=== PATIENT | female | born 1985 | race Caucasian/White ===

== ENCOUNTER 2023-03-22 23:53 | Emergency (ER) | payer OTHER, MEDICAID, SELFPAY ==
--- NOTE | 2023-03-22 23:57 | ED_ITS ---
HPI - General Adult General Chief complaint: Recheck/Abnormal Lab/Rx Stated complaint: high blood pressure Time Seen by Provider: 03/22/23 23:57 History of Present Illness HPI narrative: 37-year-old female nonsmoker without chronic medical history presents with her significant other and a chief complaint of what she describes as emotional lability and associated spikes in blood pressure that have been going on for some time. She states that she seems to get upset at the drop of a hat for certain things and can be fine 1 moment in it ramped up quite quickly the next. She states that she notes that she seems to have spikes in her blood pressure sometimes as high as the 160s when this happens. She can generally tell her blood pressure is up because she gets a bit of a headache and her skin feels flushed. She denies any current headache or blurred vision. She denies chest p ain or shortness of breath and has no abdominal pain. She was seen and evaluated at an outside emergency department a few days ago after having some left-sided rib pain and had a very extensive workup including blood work, EKG and chest x-ray without acute findings. She had a few episodes of her blood pressure getting as high as the 160s there but it was not persistent and she was not discharged on prescriptions. She was given a prescription for hydroxyzine which she has been taking to help control some of her perceived anxiety. She states that she is been under a fair amount of stress at home and is pursuing college degree, she sleeps poorly and is up multiple times per night, this has been going on for quite some time. She drinks at least a pot of block coffee per day Related Data Allergies Allergy/AdvReac Type Severity Reaction Status Date / Time No Known Drug Allergies Allergy Verified 03/23/23 00:27 Review of Systems Review of Systems Narrative: GENERAL: Denies chills, fatigue, malaise, fever, sweats. HEENT: Denies sinus pain, ear pain, sore throat, difficulty swallowing, dizziness. RESPIRATORY: Denies dyspnea, cough, wheezing, hemoptysis, sputum. CARDIOVASCULAR: Denies chest pain, palpitations, orthopnea, edema, GASTROINTESTINAL: Denies nausea, vomiting, abdominal pain, diarrhea, constipation, melena. : Denies dysuria, frequency, incontinence, hematuria, urinary retention. MUSCULOSKELETAL: denies weakness, joint pain, or bony pain SKIN: Denies rash, skin lesions, or other NEUROLOGIC: See HPI PSYCHIATRIC: No concerning psychosocial issues. 12 point review of systems is negative except for those stated above Patient History Social History Smoking Status: Never smoker Exam Narrative Exam Narrative: GENERAL: [37] year old patient appears stated age. Well-developed patient, in mild distress. HEAD: Atraumatic. Normocephalic. EYES: Pupils equal round and reactive. Extraocular motions intact. No scleral icterus. No injection or drainage. ENT: Nose without bleeding, purulent drainage. Throat without erythema, tonsillar hypertrophy or exudate. Airway patent. NECK: Trachea midline. Non tender CARDIOVASCULAR: Regular rate and rhythm without murmurs, gallops, or rubs. RESPIRATORY: Clear to auscultation. Breath sounds equal bilaterally. No wheezes, rales, or rhonchi. GASTROINTESTINAL: Abdomen soft, non-tender, nondistended. EXTREMITIES: No edema or joint tenderness. BACK: Nontender without deformity or crepitance. No flank tenderness. NEURO: AOx3. SKIN: No rash or erythema of visible areas Initial Vital Signs Initial Vital Signs: Vital Signs Temperature 98.6 F 03/23/23 00:00 Pulse Rate 90 03/23/23 00:00 Respiratory Rate 18 03/23/23 00:00 Blood Pressure 144/80 H 03/23/23 00:00 Pulse Oximetry 98 03/23/23 00:00 Oxygen Delivery Method Room Air 03/23/23 00:00 Course Vital Signs Vital signs: Vital Signs - 8 hr 03/23/23 00:00 03/23/23 00:51 Temperature 98.6 F Pulse Rate 90 80 Respiratory Rate 18 18 Blood Pressure 144/80 H 125/75 Pulse Oximetry 98 100 Oxygen Delivery Method Room Air Room Air Medical Decision Making Lab Data Labs: Point of Care Testing Test Results Negative Urine Dip Bedside Urine Glucose Negative Bedside Urine Bilirubin - Negative Bedside Urine Ketone - Negative Urine Specific [place] 1.010 Bedside Urine Occult Blood - Negative Bedside Urine pH 7.0 Bedside Urine Protein +/- 15 Bedside Urine Nitrite - Negative Bedside Urine Leukocytes - Negative Esterase Point of care testing: Point of Care Testing Test Results Negative Urine Dip Bedside Urine Glucose Negative Bedside Urine Bilirubin - Negative Bedside Urine Ketone - Negative Urine Specific [place] 1.010 Bedside Urine Occult Blood - Negative Bedside Urine pH 7.0 Bedside Urine Protein +/- 15 Bedside Urine Nitrite - Negative Bedside Urine Leukocytes - Negative Esterase MDM Narrative Medical decision making narrative: [37] year old patient presents with episodes of high blood pressure Multiple etiologies for patient's symptoms considered including, but not limited to: [Hypertension worse other] Prior Charts reviewed in our EMR Primary Historian: patient Labs reviewed and interpreted by myself: Reviewed from visit at [facility], no significant abnormalities, specifically renal function, electrolytes and cardiac function within normal Patient's initial blood pressure in the 140s, she is placed in a dark room, we talked about the benefits of controlled breathing and meditation. She employed these methods for 10-15 minutes and upon recheck her blood pressures in the 120s over 70s. She is asymptomatic. She just had an extensive workup and there is no indication at this time that more labs are likely to prove beneficial. We talked at length about whether not initiating blood pressure medications would be indicated at this time and given her relatively infrequent spikes, lack of persistent high blood pressure and lack of current symptoms or hypertension there is no indication to treat at this time. She does have an appointment with her primary care provider soon and plans to discuss options Patient's symptoms improved over duration of stay with above-stated therapies. Findings and discharge diagnosis discussed with patient/family followed by verbalization of understanding Return precautions discussed with patient/family whom verbalize understanding of diagnosis and plan Discharge Plan Departure Patient Disposition: Home Clinical Impression: Hypertension Instructions: High Blood Pressure Activity Restrictions/Additional Instructions: *You have been diagnosed with [episodic elevated blood pressure. As we discussed your history and physical exam are reassuring. We obtained records from the ED at [facility] and your labs looked great. After 15 minutes in a dark quiet room your blood pressure dropped from 144/82 to 125/75. At this point there is no indication for further workup or the initiation of medications to treat your blood pressure.] *What to do: *Please continue to take your regular medications as directed. [ ] New medication prescriptions sent to your pharmacy: [ ] [ ] New medication written as a paper prescription [ ] No new medications given *Please follow up with your primary care provider in 2-3 days, call for an appointment. Let them know you were seen in the Emergency Department and that we ask that you be seen in follow up. We will electronically transmit a record of today's note if your PCP is in our system Please consider some of the non medicinal options we talked about when you feel your motions running high. Meditation is incredibly powerful and there are multiple apps that can be found for free. Other options would be to consider slow controlled breathing in a dark quiet room. *Return to Emergency Department if you should have any new, worsening or concerning symptoms, such as [fever greater than 101 F, shaking chills, worsening pain, persistent vomiting or other bothersome symptoms] Referrals: Poonam Hyman PA-C [Primary Care Provider] - Stand Alone Forms: Patient Portal/API
[2023-03-23] VITALS: BP 144/80; PULSE 90; RESP 18; TEMP 37; O2SAT 98; BMI 29.7
[2023-03-23 00:51] VITALS: BP 125/75; PULSE 80; RESP 18; O2SAT 100
== END 2023-03-23 01:07 | disposition home or self-care (01) ==
PROVIDERS: Emergency Provider Emergency Medicine; PCP Physician Assistant
DX: I10 Essential (primary) hypertension (principal)
CPT/HCPCS: 81003; 81025; 99282

== ENCOUNTER 2023-04-06 08:41 | Emergency (ER) | payer OTHER, MEDICAID, SELFPAY ==
[2023-04-06 08:48] VITALS: BP 130/93; PULSE 92; RESP 24; TEMP 36.6; O2SAT 99; BMI 27.1
--- NOTE | 2023-04-06 09:01 | ED_ITS ---
HPI - Nausea/Vomiting/Diarrhea General Chief complaint: Nausea/Vomiting/Diarrhea Stated complaint: throwing up, Time Seen by Provider: 04/06/23 08:51 History of Present Illness HPI Narrative: Patient drove herself here from home for 3 days of intractable nausea vomiting diarrhea. No fever chills. No known sick contacts. Unable to keep any foods or liquids down. Has tried some herbal medicine without relief. Denies , just finished her period. Has had some abdominal cramping otherwise no significant abdominal pain. No cough cold or congestion. No known contaminated foods ingested. Partner does not have the same symptoms Related Data Previous Rx's Medication Instructions Recorded ondansetron 4 mg disintegrating 4 mg PO Q8H PRN nausea and 04/06/23 tablet vomiting #20 tabs pantoprazole 40 mg tablet,delayed 40 mg PO DAILY #30 tabs 04/06/23 release (Protonix) Allergies Allergy/AdvReac Type Severity Reaction Status Date / Time No Known Drug Allergies Allergy Verified 03/23/23 00:27 Review of Systems Review of Systems Narrative: GENERAL: negative chills, fatigue, malaise, fever, sweats. HEENT: negative sinus pain, ear pain, sore throat RESPIRATORY: negative dyspnea, cough CARDIOVASCULAR: negative chest pain, palpitations GASTROINTESTINAL: negative nausea, vomiting, positive diarrhea negative abdominal pain : negative dysuria, frequency, hematuria MUSCULOSKELETAL: negative muscle or bony pain SKIN: negative rash, skin lesions NEUROLOGIC: negative weakness, numbness ROS Unobtainable: All systems reviewed & are unremarkable except as noted in HPI and below Patient History Social History Smoking Status: Never smoker Smoking Status: Never smoker alcohol intake frequency: a few times a month Substance Use Type: does not use Exam Narrative Exam Narrative: GENERAL: in no distress, not toxic not dyspneic HEAD: Normocephalic. EYES: Pupils equal round ENT: Mucous membranes moist. NECK: Trachea midline. CARDIOVASCULAR: Regular rate and rhythm RESPIRATORY: Clear to auscultation. Breath sounds equal bilaterally. No wheezes, rales, or rhonchi. GASTROINTESTINAL: Abdomen soft, non-tender abdomen is soft flat nontender no peritoneal signs bowel sounds are present. No CVA tenderness EXTREMITIES: No gross deformities. BACK: No flank tenderness. NEURO: AOx4. Clear speech SKIN: Warm and dry PSYCH: Not anxious, is cooperative Initial Vital Signs Initial Vital Signs: Vital Signs Temperature 97.9 F 04/06/23 08:48 Pulse Rate 92 H 04/06/23 08:48 Respiratory Rate 24 04/06/23 08:48 Blood Pressure 130/93 H 04/06/23 08:48 Pulse Oximetry 99 04/06/23 08:48 Oxygen Delivery Method Room Air 04/06/23 08:48 Course Orders Ordered: Discontinued Medications Sodium Chloride (Normal Saline 0.9%) 1,000 mls @ 1,000 mls/hr IV BOLUS ONE Stop: 04/06/23 09:50 Last Infusion: 04/06/23 10:11 Dose: Infused Documented By: Admin: 04/06/23 09:05 Dose: 1,000 mls/hr Documented By: BERNIE Sodium Chloride (Normal Saline 0.9%) 1,000 mls @ 1,000 mls/hr IV BOLUS ONE Stop: 04/06/23 09:56 Last Admin: 04/06/23 10:02 Dose: Not Given Documented By: BERNIE Sodium Chloride (Normal Saline 0.9%) 1,000 mls @ 1,000 mls/hr IV BOLUS ONE Stop: 04/06/23 11:36 Last Infusion: 04/06/23 11:55 Dose: Infused Documented By: Admin: 04/06/23 10:45 Dose: 1,000 mls/hr Documented By: BERNIE Metoclopramide HCl (Metoclopramide 10 Mg/2 Ml Inj) 10 mg IV NOW ONE Stop: 04/06/23 10:30 Last Admin: 04/06/23 10:45 Dose: 10 mg Documented By: BERNIE Ondansetron HCl (Ondansetron 4 Mg Odt) 4 mg PO NOW PRN PRN Reason: Nausea And Vomiting Ondansetron HCl (Ondansetron 4 Mg/2 Ml Inj) 4 mg IV NOW PRN PRN Reason: Nausea And Vomiting Last Admin: 04/06/23 09:05 Dose: 4 mg Documented By: BERNIE Pantoprazole Sodium (Pantoprazole 40 Mg Vial) 40 mg IV NOW ONE Stop: 04/06/23 10:30 Last Admin: 04/06/23 10:45 Dose: 40 mg Documented By: BERNIE Vital Signs Vital signs: Vital Signs - 8 hr 04/06/23 08:48 04/06/23 10:15 04/06/23 11:15 Temperature 97.9 F Pulse Rate 92 H 85 84 Respiratory Rate 24 18 16 Blood Pressure 130/93 H 131/75 135/90 Pulse Oximetry 99 98 99 Oxygen Delivery Method Room Air Room Air Room Air 04/06/23 11:30 Temperature Pulse Rate 86 Respiratory Rate Blood Pressure 124/78 Pulse Oximetry 98 Oxygen Delivery Method Room Air MDM - Nausea/Vomiting/Diarrhea Lab Data 04/06/23 08:53 04/06/23 08:53 Labs: Lab Results 04/06/23 04/06/23 Range/Units 08:51 08:53 WBC 3.8 L (4.5-11.0) X10^3/uL RBC 4.49 (4.0-5.2) X10^6/uL Hgb 14.6 (12.0-16.0) g/dL Hct 42.4 (36-46) % MCV 94.5 (80-100) fL MCH 32.5 (26-34) PG MCHC 34.4 (30-36) % RDW 12.6 (11.6-14.8) % Plt Count 219 (150-400) X10^3/uL Neut % (Auto) 64.5 (50-75) % Lymph % (Auto) 27.6 (25-40) % [place] % (Auto) 6.2 (3-14) % Eos % (Auto) 0.3 L (2-4) % Baso % (Auto) 1.4 (0-2) % Neut # (Auto) 2500 (8511-1687) /uL Lymph # (Auto) 1000 L (6448-5813) /uL [place] # (Auto) 200 (0-900) /uL Eos # (Auto) 0 (0-450) /uL Baso # (Auto) 100 (0-100) /uL Sodium 142 (137-145) mmol/L Potassium 4.1 (3.4-5.1) mmol/L Chloride 108 H (98-107) mmol/L Carbon Dioxide 23 (22-32) mmol/L BUN 14 (7-17) mg/dL Creatinine 0.61 (0.52-1.04) mg/dL Estimated GFR > 60 (>60) mL/min BUN/Creatinine Ratio 23.0 H (6-22) Glucose 100 (70-100) mg/dL Calcium 9.5 (8.4-10.2) mg/dL Total Bilirubin 0.3 (0.2-1.3) mg/dL AST 26 (14-36) IU/L ALT 20 (<35) IU/L Alkaline Phosphatase 88 (38-126) U/L Total Protein 7.9 (6.3-8.2) g/dL Albumin 4.6 (3.5-5.0) g/dL Globulin 3.3 (1.7-4.1) g/dL Albumin/Globulin Ratio 1.4 (1.0-2.8) Lipase 51 (23-300) U/L Serum , Qual Negative (Negative) Chlamy pneumoniae PCR Not detected (Not Detect) Adenovirus (PCR) Not detected (Not Detect) B.parapertussis DNA PCR Not detected (Not Detecte) Coronavirus OC43 (PCR) Not detected (Not Detect) Coronavirus HKU1 (PCR) Not detected (Not Detect) Coronavirus 229E (PCR) Not detected (Not Detect) SARS-CoV-2 (PCR) Not detected (Not Detecte) Coronavirus NL63 (PCR) Not detected (Not Detect) Human Metapneumovir PCR Not detected (Not Detect) Influenza Type A (PCR) Not detected (Not Detect) Influenza Type B (PCR) Not detected (Not Detect) M. pneumoniae (PCR) Not detected (Not Detect) Parainfluenza 1 (PCR) Not detected (Not Detect) Parainfluenza 2 (PCR) Not detected (Not Detect) Parainfluenza 3 (PCR) Not detected (Not Detect) Parainfluenza 4 (PCR) Not detected (Not Detect) RSV (PCR) Not detected (Not Detect) Entero/Rhino (PCR) Not detected (Not Detect) Point of Care Testing Test Results Negative Urine Dip Bedside Urine Glucose Negative Bedside Urine Bilirubin - Negative Bedside Urine Ketone - Negative Urine Specific [place] 1.010 Bedside Urine Occult Blood - Negative Bedside Urine pH 8.5 Bedside Urine Protein +/- 15 Bedside Urine Urobilinogen - Negative Bedside Urine Nitrite - Negative Bedside Urine Leukocytes - Negative Esterase MDM Narrative Medical decision making narrative: Patient drove herself here from home for 3 days of intractable nausea vomiting diarrhea. No fever chills. No known sick contacts. Unable to keep any foods or liquids down. Has tried some herbal medicine without relief. Denies , just finished her period. Has had some abdominal cramping otherwise no significant abdominal pain. No cough cold or congestion. No known contaminated foods ingested. Partner does not have the same symptoms After history and exam CBC CMP lipase urinalysis test respiratory panel Zofran normal saline MDM CC: Nausea vomiting diarrhea Complicating co-morbidities: None Data collected from: Patient Medical records reviewed: No recent visit for this complaint Differential considered: Includes but not limited to gastritis gastroenteritis viral syndrome Exam documented above, pertinent findings include: Nontender abdomen Lab Test results independently reviewed as above. Pertinent findings: WBC 3.8 hemoglobin 14.6 sodium 142 potassium 4.1 BUN 14 creatinine 0.61 GFR greater than 60 AST 26 ALT 20 total bilirubin 0.3 viral swab negative Urine negative Urinalysis negative nitrite negative leukocyte esterase Treatments: Zofran normal saline Reglan Protonix Re-evaluations: 12:45 p.m.. Patient feeling much better. Able to drink water without vomiting. Nausea has resolved. No diarrhea. Return precautions reviewed with patient. Reviewed results with her. At this time they are reassuring. No imaging indicated at this time. Exam and laboratory studies reassuring. No fever. No abdominal tenderness. Discussion: Appropriate for discharge home. Exam and laboratory studies are reassuring. No imaging indicated at this time. Nontoxic at discharge. Patient drinking water without vomiting or diarrhea during course of stay. We did list Reglan as potential allergy as patient felt very jittery after given. However improved at time of discharge. Return precautions reviewed with her. She desires discharge home Diagnosis: Gastroenteritis Discharge Plan Departure Patient Disposition: Home Clinical Impression: Gastroenteritis Instructions: DI for Vomiting -- Adult Activity Restrictions/Additional Instructions: Please see your family doctor within a week for re-evaluation. Please try to keep well hydrated. Nausea medication has been sent to your pharmacy to continue today. Protonix for your stomach has been prescribed as well. At this time no fried fatty greasy foods or spicy foods or carbonated drinks, this may irritate your stomach more. Return if worse if any questions or concerns Prescriptions: New pantoprazole [Protonix] 40 mg tablet,delayed release (DR/EC) 40 mg PO DAILY Qty: 30 0RF ondansetron 4 mg tablet,disintegrating 4 mg PO Q8H PRN (Reason: nausea and vomiting) Qty: 20 0RF Referrals: Poonam Hyman PA-C [Primary Care Provider] - Stand Alone Forms: Patient Portal/API
[2023-04-06 09:03] LABS: Add Manual Diff / Slide Review NO; Basophils Absolute Auto 100 /uL (0-100); Basophils Percent Auto 1.4 % (0-2); Eosinophils Absolute Auto 0 /uL (0-450); Eosinophils Percent Auto 0.3 % (2-4); Hematocrit 42.4 % (36-46); Hemoglobin 14.6 g/dL (12.0-16.0); Lymphocytes Absolute Auto 1000 /uL (1100-4500); Lymphocytes Percent Auto 27.6 % (25-40); Mean Corpuscular HGB Conc 34.4 % (30-36); Mean Corpuscular Hemoglobin 32.5 PG (26-34); Mean Corpuscular Volume 94.5 fL (80-100); Monocytes Absolute Auto 200 /uL (0-900); Monocytes Percent Auto 6.2 % (3-14); Neutrophils Absolute Auto 2500 /uL (1500-7000); Neutrophils Percent Auto 64.5 % (50-75); Platelet Count 219 X10^3/uL (150-400); Red Blood Cell Count 4.49 X10^6/uL (4.0-5.2); Red Cell Distribution Width 12.6 % (11.6-14.8); White Blood Cell Count 3.8 X10^3/uL (4.5-11.0)
[2023-04-06] MEDS: SODIUM CHLORIDE 0.9% 1,000 ML 1000 ML IV ×2 (09:05→10:45)
[2023-04-06] MEDS: ONDANSETRON 4 MG/2 ML INJ IV (09:05)
[2023-04-06 09:31] LABS: Pregnancy Test Serum,Qual Negative (Negative)
[2023-04-06 09:33] LABS: Alanine Aminotransferase 20 IU/L (<35); Albumin 4.6 g/dL (3.5-5.0); Albumin Globulin Ratio 1.4 (1.0-2.8); Alkaline Phosphatase 88 U/L (38-126); Aspartate Aminotransferase 26 IU/L (14-36); Bilirubin Total 0.3 mg/dL (0.2-1.3); Blood Urea Nitrogen 14 mg/dL (7-17); Calcium 9.5 mg/dL (8.4-10.2); Carbon Dioxide 23 mmol/L (22-32); Chloride 108 mmol/L (98-107); Estimated Glomerular Filt Rate > 60 mL/min (>60); Globulin 3.3 g/dL (1.7-4.1); Glucose 100 mg/dL (70-100); HEMOLYSIS < 15 (0-50); Lipase 51 U/L (23-300); Potassium 4.1 mmol/L (3.4-5.1); Sodium 142 mmol/L (137-145); Total Protein 7.9 g/dL (6.3-8.2)
[2023-04-06 10:01] LABS: Adenovirus Not Detected (Not Detect); B. parapertussis Not Detected (Not Detecte); Bordetella pertussis Not Detected (Not Detect); Chlamydophila pneumoniae Not Detected (Not Detect); Coronavirus 229E Not Detected (Not Detect); Coronavirus HKU1 Not Detected (Not Detect); Coronavirus NL 63 Not Detected (Not Detect); Coronavirus OC43 Not Detected (Not Detect); Human Metapneumovirus Not Detected (Not Detect); Human Rhinovirus/Enterovirus Not Detected (Not Detect); Influenza A Not Detected (Not Detect); Influenza B Not Detected (Not Detect); Mycoplasma pneumoniae Not Detected (Not Detect); Parainfluenza Virus 1 Not Detected (Not Detect); Parainfluenza Virus 2 Not Detected (Not Detect); Parainfluenza Virus 3 Not Detected (Not Detect); Parainfluenza Virus 4 Not Detected (Not Detect); Respiratory Syncytial Virus Not Detected (Not Detect); SARS- CoV-2 Not Detected (Not Detecte)
[2023-04-06 10:15] VITALS: BP 131/75; PULSE 85; RESP 18; O2SAT 98
[2023-04-06] MEDS: PANTOPRAZOLE 40 MG VIAL IV (10:45)
[2023-04-06] MEDS: METOCLOPRAMIDE 10 MG/2 ML INJ IV (10:45)
--- NOTE | 2023-04-06 10:52 | PC.NURSE ---
Pt stated that she was still feeling nauseous and like she was having reflux. Discussed with provider and protonix, reglan and 2nd liter of fluids ordered. Pt ambulated to bathroom independently with steady gait. A&Ox4. Denies any pain or SOB at this time.
[2023-04-06 11:15] VITALS: BP 135/90; PULSE 84; RESP 16; O2SAT 99
[2023-04-06 11:30] VITALS: BP 124/78; PULSE 86; O2SAT 98
[2023-04-06 12:56] VITALS: BP 126/84; PULSE 74; RESP 20; O2SAT 99
== END 2023-04-06 12:57 | disposition home or self-care (01) ==
PROVIDERS: Emergency Provider Emergency Medicine; PCP Physician Assistant
DX: K52.9 Noninfective gastroenteritis and colitis, unspecified (principal); Z20.822 Contact with and (suspected) exposure to COVID-19
CPT/HCPCS: 36415; 80053; 81003; 81025; 83690; 84703; 85025; 87633; 96361; 96374; 96375; 99284; C9113; J2405; J2765

== ENCOUNTER 2023-05-18 08:43 | Emergency (ER) | payer OTHER, MEDICAID, SELFPAY ==
[2023-05-18 08:55] VITALS: TEMP 36.7; BMI 26.9
--- NOTE | 2023-05-18 11:40 | PC.NURSE ---
pt not in lobby
--- NOTE | 2023-05-19 08:38 | PC.NURSE ---
Late entry: This RN did the triage vital signs for the patient and forgot to place the remainder of the vital signs beyond temperature. I remember her blood pressure was 182/62 and pulse was 82 because they were the same. Patient respirations were within normal limits and patient had no notable abdominal breathing or distress.
== END 2023-05-18 12:00 | disposition left against medical advice (07) ==
PROVIDERS: Emergency Provider Emergency Medicine; PCP Physician Assistant
DX: R21 Rash and other nonspecific skin eruption (principal)
CPT/HCPCS: 99281

== ENCOUNTER 2025-05-03 14:33 | Emergency (ER) | payer OTHER, MEDICAID, SELFPAY ==
[2025-05-03 14:38] VITALS: BP 161/79; PULSE 87; RESP 18; TEMP 36.9; O2SAT 95; BMI 27.1
[2025-05-03 14:45] VITALS: BMI 27.1
[2025-05-03 15:27] VITALS: BP 125/79; PULSE 80; RESP 16; TEMP 37.4; O2SAT 98
--- NOTE | 2025-05-03 15:33 | ED_ITS ---
<Statement entered by Duong Castañeda, - 05/03/25 21:53> Dr. Castañeda: I was immediately available in the department for consultation. I did not actually see the patient. HPI - Abdominal Pain General Chief Complaint: Abdominal Pain Stated Complaint: Blood in stool x3, 2 days Time Seen by Provider: 05/03/25 15:33 Source: patient Mode of arrival: Ambulatory History of Present Illness HPI narrative: Ms. Bueno is a pleasant 39-year-old female with a past medical history of cholecystectomy with reported subsequent dumping syndrome who presents to the emergency department for bloody stool x2 days, nausea and abdominal pain x about 2 weeks. Patient reports that she struggles with chronic diarrhea since having her gallbladder removed, she is trying to get and was taking Clomid and subsequently developed more firm stools, not constipated but solid. She has been experiencing some abdominal intermittent pains which she describes as gas pain, bloating, some nausea and some pink tinged stool so she went to an outside urgent care where she was evaluated, found to have an external hemorrhoid that was not bleeding but there was some internal bleeding. Patient comes to the ER today because over the last 2 days she has experienced bright red blood in the toilet bowl for the 1st time. Patient denies pain in the rectum with having a bowel movement or straining. She showed me pictures which revealed firm brown stool surrounded by bright red blood. She denies dizziness, lightheadedness, shortness of breath, chest pain, fevers, chills dysuria, hematuria. He has not had a colonoscopy before. Related Data Previous Rx's ?Medication ?Instructions ?Recorded ondansetron 4 mg disintegrating 4 mg PO Q8H PRN nausea and 04/06/23 tablet vomiting #20 tabs pantoprazole 40 mg tablet,delayed 40 mg PO DAILY #30 t abs 04/06/23 release (Protonix) Allergies Allergy/AdvReac Type Severity Reaction Status Date / Time marijuana (cannabis) Allergy Unknown Verified 05/03/25 14:46 metoclopramide (From Reglan) Allergy Unknown Verified 05/03/25 14:45 Review of Systems Review of Systems ROS Unobtainable: All systems reviewed & are unremarkable except as noted in HPI and below Patient History Social History Smoking Status: Never smoker Smoking Status: Never smoker alcohol intake frequency: a few times a month Exam Narrative Exam Narrative: GENERAL: 39 year old patient appears stated age. Well-developed patient, in no acute distress. HEAD: Atraumatic. Normocephalic. EYES: No scleral icterus. No injection or drainage. NECK: Trachea midline. Cervical ROM intact. CARDIOVASCULAR: Regular rate and rhythm. RESPIRATORY: ?Nonlabored respirations. ?Speaking in clear, full sentences. ?Clear to auscultation. Breath sounds equal bilaterally. No wheezes, rales, or rhonchi. ? GASTROINTESTINAL: Abdomen soft, no focal tenderness but generalized discomfort, no rebound or guarding. BS present. RECTAL: Soft, nontender skin tags and hemorrhoids around external rectum. No blood or stool on JESÚS. EXTREMITIES: No LE edema. BACK: No CVA tenderness. NEURO: AOx3. ?Clear speech. ?Moves all 4 extremities appropriately. SKIN: No rash or erythema of visible areas Initial Vital Signs Initial Vital Signs: Vital Signs Temperature 98.4 F 05/03/25 14:38 Pulse Rate 87 05/03/25 14:38 Respiratory Rate 18 05/03/25 14:38 Blood Pressure 161/79 H 05/03/25 14:38 Pulse Oximetry 95 05/03/25 14:38 Oxygen Delivery Method Room Air 05/03/25 14:38 Course Orders Ordered: ED Orders 05/03/25 15:49 GI Bleed [CT angio Abd/Pel GI Bleed] Stat 05/03/25 16:13 Complete Blood Count AUTO DIFF Stat Comprehensive Metabolic Panel Stat Lipase Stat Discontinued Medications Sodium Chloride (Normal Saline 0.9%) 1,000 mls @ 1,000 mls/hr IV BOLUS ONE Stop: 05/03/25 16:44 Last Infusion: 05/03/25 18:43 Dose: Infused Documented By: Admin: 05/03/25 16:23 Dose: 1,000 mls/hr Documented By: Pantoprazole Sodium (Pantoprazole 40 Mg Vial) 40 mg IV NOW ONE Stop: 05/03/25 15:46 Last Admin: 05/03/25 16:23 Dose: 40 mg Documented By: Vital Signs Vital signs: Vital Signs - 8 hr 05/03/25 14:38 05/03/25 15:27 05/03/25 18:47 Temperature 98.4 F 99.3 F Pulse Rate 87 80 72 Respiratory Rate 18 16 16 Blood Pressure 161/79 H 125/79 121/78 Pulse Oximetry 95 98 98 Oxygen Delivery Method Room Air Room Air Room Air MDM - Abdominal Pain Medical Records Attestation: I reviewed the patient's medical records. Lab Data 05/03/25 16:13 05/03/25 16:13 Labs: Lab Results 05/03/25 Range/Units 16:13 WBC 5.7 (4.5-11.0) X10^3/uL RBC 4.40 (4.0-5.2) X10^6/uL Hgb 14.4 (12.0-16.0) g/dL Hct 41.7 (36-46) % MCV 94.7 (80-100) fL MCH 32.7 (26-34) PG MCHC 34.5 (30-36) % RDW 12.4 (11.6-14.8) % Plt Count 192 (150-400) X10^3/uL Neut % (Auto) 64.5 (50-75) % Lymph % (Auto) 27.0 (25-40) % [place] % (Auto) 6.3 (3-14) % Eos % (Auto) 0.9 L (2-4) % Baso % (Auto) 1.3 (0-2) % Neut # (Auto) 3700 (1009-5459) /uL Lymph # (Auto) 1500 (4208-8022) /uL [place] # (Auto) 400 (0-900) /uL Eos # (Auto) 0 (0-450) /uL Baso # (Auto) 100 (0-100) /uL Sodium 142 (137-145) mmol/L Potassium 3.6 (3.4-5.1) mmol/L Chloride 109 H (98-107) mmol/L Carbon Dioxide 26 (22-32) mmol/L BUN 11 (7-17) mg/dL Creatinine 0.79 (0.52-1.04) mg/dL Estimated GFR > 60 (>60) mL/min BUN/Creatinine Ratio 13.9 (6-22) Glucose 121 H (70-99) mg/dL Calcium 8.9 (8.4-10.2) mg/dL Total Bilirubin 0.5 (0.2-1.3) mg/dL AST 24 (14-36) IU/L ALT 15 (<35) IU/L Alkaline Phosphatase 88 (38-126) U/L Total Protein 7.3 (6.3-8.2) g/dL Albumin 4.2 (3.5-5.0) g/dL Globulin 3.1 (1.7-4.1) g/dL Albumin/Globulin Ratio 1.4 (1.0-2.8) Lipase 74 (23-300) U/L Point of care testing: Point of Care Testing Test Results Negative Urine Dip Bedside Urine Glucose Negative Bedside Urine Bilirubin - Negative Bedside Urine Ketone - Negative Urine Specific Pride 1.015 Bedside Urine Occult Blood - Negative Bedside Urine pH 6.0 Bedside Urine Protein - Negative Bedside Urine Urobilinogen - Negative Bedside Urine Nitrite - Negative Bedside Urine Leukocytes - Negative Esterase Imaging Data CT scan - abdomen/pelvis: Radiologist's Impression: PROCEDURE: CT ANGIO ABD/PEL GI BLEED INDICATIONS: int abd pain; BRB in stool TECHNIQUE: Precontrast imaging was performed. After the administration of intravenous contrast, 2.5 mm thick sections acquired from the diaphragm to the symphysis. Scanning was performed in the arterial and in the venous phases. 10 mm maximum-intensity projection (MIP) reformats were then acquired. For radiation dose reduction, the following was used: automated exposure control. COMPARISON: None. FINDINGS: Image Quality: Diagnostic. Abdominal aorta: No aortic aneurysm or evidence of acute aortic syndrome. Mesenteric arteries: Patent without hemodynamically significant stenosis. Renal arteries: Patent without hemodynamically significant stenosis. OTHER: Lower Chest: No significant findings. Liver: No solid mass. Gallbladder: Cholecystectomy. Biliary ducts: No biliary dilation. Pancreas: No ductal dilation. Spleen: Size is within normal limits. Adrenal Glands: No adrenal nodules. Kidneys and Ureters: No hydronephrosis. No solid mass. No complex renal cystic lesion which requires follow up. Stomach and Bowel: In this patient with this given history, scrutiny is given to the colon for a cause of bleeding. None can be seen. No source of active bleeding is seen. Normal colonic caliber, without significant wall thickening. No dilated loops of small bowel are seen. Peritoneum: No abnormal intraperitoneal fluid. No free air. Ventral Wall: A [id number] periumbilical hernia is seen, containing fat. Abdominal Nodes: No retroperitoneal or mesenteric adenopathy by size criteria. Vessels: Aorta and inferior vena cava are normal in size. PELVIS: Pelvic Organs: No adnexal masses are seen on either side. Bladder: Unremarkable. Pelvic Nodes: No enlarged lymph nodes. Miscellaneous: No inguinal hernias are seen. Bones: No aggressive osseous abnormality. IMPRESSION: No cause of GI bleeding can be seen. No source of active bleeding is seen. Additional findings: Cholecystectomy [id number] fat containing periumbilical hernia Dictated by: Oj Metzger M.D. on 05/03/2025 at 17:01 Approved by: Oj Metzger M.D. on 05/03/2025 at 17:04 [facility] Narrative Medical decision making narrative: 39-year-old female with a past medical history of cholecystectomy with reported subsequent dumping syndrome who presents to the emergency department for bloody stool x2 days, nausea and abdominal pain x about 2 weeks. Differential diagnosis includes but is not limited to lower GI bleed, anal fissure, bleeding hemorrhoid, colitis, diverticulitis anemia, etc. On exam the patient is in no acute distress, nontoxic appearing, vital signs within normal limits. She is here with her son and her . She reports intermittent abdominal pain and nausea over the last few weeks and over the past 2 days she has had multiple episodes of bright red blood in her stool. She did not having pain with defecation. Abdominal exam reveals no rebound or guarding. We will obtain CBC, CMP, lipase, urinalysis, CTA, treat with fluids and Protonix. Rectal exam reveals no gross blood. Imaging reveals no cause of GI bleeding seen, no active source of bleeding. Labs reveal normal WBC count 5.7, hemoglobin 14.4 hematocrit 41.7 RBC 4.4. Normal platelets 192. Sodium 142, potassium 3.6, BUN 11 creatinine 0.79. Normal LFTs, lipase. Negative . No additional episodes of bleeding in the ED. discussed with the patient the importance of following up for colonoscopy for further evaluation of rectal bleeding. Discussed possible causes, encouraged daily MiraLax used to allow for softer stools, Epsom salt baths. Discussed very strict ER return precautions and reviewed signs and symptoms to return for. Also advised PCP follow up for referral for colonoscopy. Patient verbalized understanding of all information agreeable with the plan, repeat abdominal exam is soft and nontender, she is eager for discharge home and stable at this time. Discharge Plan Departure Patient Disposition: Home Clinical Impression: Blood in stool, deyanira Instructions: DI for Rectal Bleeding Activity Restrictions/Additional Instructions: Dear Sophie Myles, Thank you for coming to the emergency department. Today you were evaluated for bloody stool. Lab work and CT today did not reveal an acute source of your bleeding. As we discussed, is possible that you have an internal hemorrhoid, internal fissure or other source of your bleed and it is very important follow up with the primary care provider for a colonoscopy for further evaluation. I would like you to increase hydration, use MiraLax to soften stools as well. Please return to the emergency department if you develop severe pain, increased bleeding associated with dizziness, lightheadedness, shortness of breath or feeling unwell, fevers or any other concerns. Please follow up with your primary care doctor within the next 2-3 days for ER follow-up. (If you do not have a PCP you can call [phone]. ?to schedule an appointment with an [facility] Primary Care Provider) IF YOU DEVELOP ANY NEW OR WORSENING SYMPTOMS, RETURN TO THE ER! Please read the attached instructions, they highlight more specific treatments and interventions for you at home. Thank you for letting me participate in your care, Judith Kaur PA-C Prescriptions: No Action pantoprazole [Protonix] 40 mg tablet,delayed release (DR/EC) 40 mg PO DAILY Qty: 30 0RF ondansetron 4 mg tablet,disintegrating 4 mg PO Q8H PRN (Reason: nausea and vomiting) Qty: 20 0RF Referrals: ProviderSheyla [Primary Care Provider, [facility]] Stand Alone Forms: Patient Portal/API
--- NOTE | 2025-05-03 15:49 | DI.CT.S_ITS ---
PROCEDURE: CT ANGIO ABD/PEL GI BLEED INDICATIONS: int abd pain; BRB in stool TECHNIQUE: Precontrast imaging was performed. After the administration of intravenous contrast, 2.5 mm thick sections acquired from the diaphragm to the symphysis. Scanning was performed in the arterial and in the venous phases. 10 mm maximum-intensity projection (MIP) reformats were then acquired. For radiation dose reduction, the following was used: automated exposure control. COMPARISON: None. FINDINGS: Image Quality: Diagnostic. Abdominal aorta: No aortic aneurysm or evidence of acute aortic syndrome. Mesenteric arteries: Patent without hemodynamically significant stenosis. Renal arteries: Patent without hemodynamically significant stenosis. OTHER: Lower Chest: No significant findings. Liver: No solid mass. Gallbladder: Cholecystectomy. Biliary ducts: No biliary dilation. Pancreas: No ductal dilation. Spleen: Size is within normal limits. Adrenal Glands: No adrenal nodules. Kidneys and Ureters: No hydronephrosis. No solid mass. No complex renal cystic lesion which requires follow up. Stomach and Bowel: In this patient with this given history, scrutiny is given to the colon for a cause of bleeding. None can be seen. No source of active bleeding is seen. Normal colonic caliber, without significant wall thickening. No dilated loops of small bowel are seen. Peritoneum: No abnormal intraperitoneal fluid. No free air. Ventral Wall: A [id number] periumbilical hernia is seen, containing fat. Abdominal Nodes: No retroperitoneal or mesenteric adenopathy by size criteria. Vessels: Aorta and inferior vena cava are normal in size. PELVIS: Pelvic Organs: No adnexal masses are seen on either side. Bladder: Unremarkable. Pelvic Nodes: No enlarged lymph nodes. Miscellaneous: No inguinal hernias are seen. Bones: No aggressive osseous abnormality. IMPRESSION: No cause of GI bleeding can be seen. No source of active bleeding is seen. Additional findings: Cholecystectomy [id number] fat containing periumbilical hernia Dictated by: Oj Metzger M.D. on 05/03/2025 at 17:01 Approved by: Oj Metzger M.D. on 05/03/2025 at 17:04
[2025-05-03] MEDS: SODIUM CHLORIDE 0.9% 1,000 ML 1000 ML IV (16:23)
[2025-05-03] MEDS: PANTOPRAZOLE 40 MG VIAL IV (16:23)
[2025-05-03 16:26] LABS: Add Manual Diff / Slide Review NO; Hematocrit 41.7 % (36-46); Hemoglobin 14.4 g/dL (12.0-16.0); Lymphocytes Absolute Auto 1500 /uL (1100-4500); Mean Corpuscular HGB Conc 34.5 % (30-36); Mean Corpuscular Hemoglobin 32.7 PG (26-34); Mean Corpuscular Volume 94.7 fL (80-100); Platelet Count 192 X10^3/uL (150-400)
[2025-05-03 16:41] LABS: Alanine Aminotransferase 15 IU/L (<35); Albumin 4.2 g/dL (3.5-5.0); Albumin Globulin Ratio 1.4 (1.0-2.8); Alkaline Phosphatase 88 U/L (38-126); Blood Urea Nitrogen 11 mg/dL (7-17); Calcium 8.9 mg/dL (8.4-10.2); Carbon Dioxide 26 mmol/L (22-32); Chloride 109 mmol/L (98-107); Estimated Glomerular Filt Rate > 60 mL/min (>60); Globulin 3.1 g/dL (1.7-4.1); Glucose 121 mg/dL (70-99); HEMOLYSIS 16 (0-50); Lipase 74 U/L (23-300); Potassium 3.6 mmol/L (3.4-5.1); Sodium 142 mmol/L (137-145); Total Protein 7.3 g/dL (6.3-8.2)
[2025-05-03 18:47] VITALS: BP 121/78; PULSE 72; RESP 16; O2SAT 98
== END 2025-05-03 18:47 | disposition home or self-care (01) ==
PROVIDERS: Emergency Provider Physician Assistant
DX: K92.1 Melena (principal); R10.9 Unspecified abdominal pain
CPT/HCPCS: 74174; 80053; 81003; 81025; 83690; 85025; 96361; 96374; 99283; 99284; J2470; J7030